=== PATIENT | female | born 1960 | race Caucasian/White ===

== ENCOUNTER 2021-01-19 17:41 | Emergency (ER) | payer SELFPAY ==
[~2021-01-19] VITALS: Ht 172.7 cm; Wt 77.3 kg
[2021-01-19 18:41] VITALS: BP 187/115; PULSE 89; TEMP 98.7
== END 2021-01-19 18:41 | disposition home or self-care (01) ==
LOC: COL.ER 17:41
DX: M25.561 Pain in right knee (principal); F17.210 Nicotine dependence, cigarettes, uncomplicated

== ENCOUNTER → 2021-01-21 | Outpatient (CLI) | payer OTHER ==
[2021-01-21 09:20] LABS: SYNOVIAL FL. MONONUCLEAR 13.6 % (0-75); SYNOVIAL FLUID RBC 3597000 /mm3 (0-0); SYNOVIAL FLUID WBC 4388 /mm3 (200-600)
[2021-01-21 09:21] LABS: SYNOVIAL FLUID APPEARANCE BLOODY; SYNOVIAL FLUID COLOR RED
== END ==
LOC: ZCOL.LAB 08:54
PROVIDERS: Orthopaedic Surgery
DX: Z11.9 Encounter for screening for infectious and parasitic diseases, unspecified (principal); M25.561 Pain in right knee